=== PATIENT | male | born 1960 ===

== ENCOUNTER 2023-10-02 07:24 | Outpatient (CLI) | payer OTHER ==
[2023-10-02 08:40] LABS: HEMATOCRIT 43.5 % (39.0-48.0); HEMOGLOBIN 14.8 g/dL (13-16.00); MEAN CELL VOLUME 90.2 fL (80.0-100.00); MEAN CORPUSCULAR HEMOGLOBIN 30.8 pg (27.00-32.0); MEAN CORPUSCULAR HGB CONC 34.1 g/dl (32.0-36.0); PLATELET COUNT 386 K/uL (150-450); RED BLOOD COUNT 4.82 M/uL (4.00-6.00); RED CELL DISTRIBUTION WIDTH 13.7 % (11.5-14.5)
[2023-10-02 09:11] LABS: INR < 0.93; PROTHROMBIN TIME 9.6 SECONDS (9.0-11.5)
[2023-10-02 09:14] LABS: BILIRUBIN TOTAL 0.42 mg/dL (0.3-1.2); CALCIUM 10.2 mg/dL (8.5-10.1); GFR 74.99; GLOBULINA 3.8 G/DL (2.4-3.5); POTASSIUM 4.13 mEq/L (3.5-5.1); TOTAL PROTEIN 7.8 gm/dL (6.4-8.2)
== END 2023-10-02 14:21 | disposition home or self-care (01) ==
LOC: LAB 07:24
PROVIDERS: ATTEND Surgery
DX: C20 Malignant neoplasm of rectum (principal); K92.1 Melena

== ENCOUNTER 2023-10-02 09:15 | Outpatient (CLI) | payer OTHER | END 2023-10-02 10:06 | disposition home or self-care (01) | LOC: TOM 09:15 | PROVIDERS: ATTEND Surgery | DX: C20 Malignant neoplasm of rectum (principal); K92.1 Melena | CPT/HCPCS: 74177; Q9965 ==

== ENCOUNTER 2023-10-06 07:00 | Day surgery (SDC) | payer OTHER ==
[2023-10-06] MEDS ORDERED: TRAM1TAB98 PO (08:29)
== END 2023-10-06 10:00 | disposition home or self-care (01) ==
LOC: AMB-ENDOS 07:00 → CIR.AMB 09:00 → AMB-ENDOS 10:00
PROVIDERS: ATTEND Surgery
DX: C20 Malignant neoplasm of rectum (principal); K92.1 Melena; K57.30 Diverticulosis of large intestine without perforation or abscess without bleeding; Z20.822 Contact with and (suspected) exposure to COVID-19

== ENCOUNTER 2025-01-31 11:45 | Inpatient (IN) | payer OTHER ==
[~2025-01-31] VITALS: Ht 165.1 cm; Wt 66.7 kg
[~2025-01-31 11:45] MED LIST: TRAM1TAB98 PO
[2025-02-02] MEDS ORDERED: METFORMIN HCL500 MG (08:23)
[2025-02-02 08:28] VITALS: BP 144/82
[2025-02-06] MEDS ORDERED: CEFTRIAXONE SODIUM 2,000 MG VIAL ONE ×2 (06:37→07:21)
[2025-02-06] MEDS ORDERED: METRONIDAZOLE/SODIUM CHLORIDE 500 MG/100 ML PIGGYBACK IV ONE ×2 (06:37→07:21)
[2025-02-06] MEDS ORDERED: BUPIVACAINE HCL/MPF 0.5% 30ML VIAL ONE (07:21)
[2025-02-06] MEDS ORDERED: LIDOCAINE HCL 1%/EPINEPHRINE 20ML VIAL IJ ONE ×2 (07:21→08:45)
[2025-02-06] MEDS ORDERED: POVIDONE-IODINE 118 ML BOTT TOP ONE (07:21)
[2025-02-06] MEDS ORDERED: HEMOSTATIC MATRIX 1 KIT KIT TOP ONE ×2 (08:00→08:45)
[2025-02-06] MEDS ORDERED: DIBUCAINE 30 GM TUBE ONE (08:00)
[2025-02-06] MEDS ORDERED: BUPIVACAINE HCL 30 ML VIAL IJ ONE (08:45)
[2025-02-06] MEDS ORDERED: DIBUCAINE 30 GM TUBE RECTAL ONE (08:45)
[2025-02-06] MEDS ORDERED: HYOSCYAMINE SULFATE 0.125 MG TAB.SUBL SL SCH (09:00)
[2025-02-06] MEDS ORDERED: CELECOXIB 200 MG CAPSULE PO SCH (09:00)
[2025-02-06] MEDS ORDERED: ONDANSETRON HCL 2 MG/ML VIAL IV PRN (09:00)
[2025-02-06] MEDS ORDERED: MORPHINE SULFATE 4 MG/ML CARTRIDGE IV PRN (09:00)
[2025-02-06] MEDS ORDERED: OxyCODONE HCL 5 MG TABLET (ROXICODONE) PO PRN (09:00)
[2025-02-06] MEDS ORDERED: FAMOTIDINE/PF 20 MG/2 ML VIAL IV PUSH SCH (09:00)
[2025-02-06] MEDS ORDERED: DEXTROSE 50 % IN WATER 0.5 G/ML VIAL IV PRN (09:00)
[2025-02-06] MEDS ORDERED: 0.9 % SODIUM CHLORIDE 1,000 ML IV SCH (09:00)
[2025-02-06] MEDS ORDERED: METRONIDAZOLE/SODIUM CHLORIDE 500 MG/100 ML PIGGYBACK IV SCH (09:00)
[2025-02-06] MEDS ORDERED: GABAPENTIN 300 MG CAPSULE PO SCH (09:00)
[2025-02-06] MEDS ORDERED: MORPHINE SULFATE 4 MG/ML VIAL IV ONE (09:15)
[2025-02-06] MEDS ORDERED: FAMOTIDINE/PF 20 MG/2 ML VIAL ONE (09:21)
[2025-02-06 09:48] LABS: HEMATOCRIT 40.3 % (39.0-48.0); HEMOGLOBIN 13.8 g/dL (13-16.00); MEAN CELL VOLUME 91.1 fL (80.0-100.00); MEAN CORPUSCULAR HEMOGLOBIN 31.2 pg (27.00-32.0); MEAN CORPUSCULAR HGB CONC 34.2 g/dl (32.0-36.0); PLATELET COUNT 264 K/uL (150-450); RED BLOOD COUNT 4.42 M/uL (4.00-6.00); RED CELL DISTRIBUTION WIDTH 13.8 % (11.5-14.5)
[2025-02-06 10:26] LABS: ALBUMIN 3.2 gm/dL (3.4-5.0); CREATININE SERUM 0.84 mg/dL (0.70-1.30); GFR 91.42; POTASSIUM 4.9 mEq/L (3.5-5.1)
[2025-02-06 11:50] VITALS: BP 135/78; O2SAT 96
[2025-02-06] MEDS ORDERED: ACETAMINOPHEN 500 MG GEL..CAP PO SCH (14:00)
[2025-02-06] MEDS ORDERED: POLYETHYLENE GLYCOL 3350 17 GM BLIST.PACK PO SCH (17:00)
[2025-02-06 17:06] VITALS: BP 131/69; O2SAT 97
[2025-02-07 01:00] VITALS: BP 127/73; O2SAT 97
[2025-02-07 06:49] LABS: HEMATOCRIT 40.4 % (39.0-48.0); HEMOGLOBIN 14.1 g/dL (13-16.00); MEAN CELL VOLUME 90.4 fL (80.0-100.00); MEAN CORPUSCULAR HEMOGLOBIN 31.5 pg (27.00-32.0); MEAN CORPUSCULAR HGB CONC 34.8 g/dl (32.0-36.0); PLATELET COUNT 267 K/uL (150-450); RED BLOOD COUNT 4.47 M/uL (4.00-6.00); RED CELL DISTRIBUTION WIDTH 13.8 % (11.5-14.5)
[2025-02-07 07:10] LABS: ALBUMIN 2.9 gm/dL (3.4-5.0); CALCIUM 8.7 mg/dL (8.5-10.1); CREATININE SERUM 0.87 mg/dL (0.70-1.30); GFR 87.79; MAGNESIUM 1.8 mg/dL (1.8-2.4); PHOSPHOROUS 2.8 mg/dL (2.5-4.9); POTASSIUM 4.82 mEq/L (3.5-5.1)
[2025-02-07] MEDS ORDERED: TRAM1TAB98 PO (07:31)
[2025-02-07] MEDS ORDERED: ENOXAPARIN SODIUM 40 MG/0.4 ML SYRINGE SUBCUTANEO SCH (17:00)
[2025-02-08] MEDS ORDERED: ENOXAPARIN SODIUM 40 MG/0.4 ML SYRINGE SUBCUTANEO SCH (09:00)
== END 2025-02-07 10:58 | disposition home or self-care (01) | DRG 376 ==
LOC: O/R 02-06 05:06 → SURH 02-06 07:00
PROVIDERS: ADMIT Surgery; ATTEND Surgery
PROC: 3E0T3BZ Introduction of Anesthetic Agent into Peripheral Nerves and Plexi, Percutaneous Approach (ICD-10-PCS; 2025-02-06)
PROC: 0DBP8ZZ Excision of Rectum, Via Natural or Artificial Opening Endoscopic (ICD-10-PCS; principal; 2025-02-06 07:00)
DX: C20 Malignant neoplasm of rectum (principal)
CPT/HCPCS: 0184T; 64430